=== PATIENT | male | born 1990 ===

== ENCOUNTER 2017-11-11 08:21 | Emergency (ER) | payer OTHER ==
[2017-11-11 08:37] VITALS: BP 138/85; PULSE 101; TEMP 99; O2SAT 95
[2017-11-11] MEDS ORDERED: Albuterol-Ipratrop 3 mg / 0.5 (3 ml) UD IH STA (09:23)
[2017-11-11] MEDS ORDERED: Albuterol-Ipratrop 3 mg / 0.5 (3 ml) UD ONE (09:26)
--- NOTE | 2017-11-11 09:26 | ED PDOC ---
HPI: CCC, URI, Sore Throat Time Seen by Provider: 11/11/17 09:09 Chief Complaint (Nursing): Shortness Of Breath History Per: Patient Onset/Duration Of Symptoms: Other (2 weeks) Current Symptoms Are (Timing): Still Present Associated Symptoms: Cough, Sputum Severity: Moderate Additional Complaint(s): Cough productive yellow sputum x 2 weeks. Reecntly returned from [facility]. Seen in [facility] yesterday and rx'ed with Zithromax and nebulizer. Improves with nebs but SOB and wheezing recurrs. Past Medical History Vital Signs: Last Vital Signs Temp 99.0 F 11/11/17 08:34 Pulse 101 H 11/11/17 08:34 Resp 18 11/11/17 09:30 BP 138/85 11/11/17 08:34 Pulse Ox 95 11/11/17 09:26 - Medical History PMH: No Chronic Diseases - Family History Family History: States: Unknown Family Hx - Home Medications Home Medications: Ambulatory Orders Medication Instructions Recorded Prednisone 50 mg PO DAILY #5 tab 11/11/17 - Allergies Allergies/Adverse Reactions: Allergies Allergy/AdvReac Type Severity Reaction Status Date / Time Penicillins Allergy RASH Verified 11/11/17 08:33 Review of Systems Constitutional: Positive for: Fever Respiratory: Positive for: Cough Physical Exam - Physical Exam Appears: Positive for: Non-toxic, No Acute Distress Skin: Positive for: Normal Color, Warm, DRY ENT: Positive for: Pharyngeal Erythema Neck: Positive for: Normal, Painless ROM Cardiovascular/Chest: Positive for: Regular Rate, Rhythm Respiratory: Positive for: Normal Breath Sounds, Rhonchi, Wheezing. Negative for: Respiratory Distress Extremity: Positive for: Normal ROM Neurologic/Psych: Positive for: Alert, Oriented - ECG O2 Sat by Pulse Oximetry: 95 - Progress Re-evaluation Time: 09:48 Condition: Improved Disposition - Clinical Impression Clinical Impression: Bronchitis - Patient ED Disposition Is Patient to be Admitted: No Counseled Patient/Family Regarding: Studies Performed, Diagnosis, Need For Followup, Rx Given - Disposition Referrals: [facility] [place] [Outside] Disposition: Routine/Home Disposition Time: 09:48 Condition: FAIR Prescriptions: Prednisone 50 mg PO DAILY #5 tab Instructions: Acute Bronchitis (ED) Forms: [employer] ([place])
[2017-11-11 09:36] VITALS: RESP 18
--- NOTE | 2017-11-11 10:06 | RAD ---
HISTORY: cough COMPARISON: None available. TECHNIQUE: Chest PA and lateral FINDINGS: Emanation limited by habitus. LUNGS: Minimal interstitial prominence and peribronchiolar cuffing centrally. No focal consolidation. Please note that chest x-ray has limited sensitivity for the detection of pulmonary masses. PLEURA: No significant pleural effusion identified. No definite pneumothorax . CARDIOVASCULAR: The cardiomediastinal silhouette appears within normal limits of size. OSSEOUS STRUCTURES: No acute osseous abnormality identified. VISUALIZED UPPER ABDOMEN: Mild elevation of right hemidiaphragm. OTHER FINDINGS: None. IMPRESSION: Findings consistent with mild reactive or inflammatory airway disease.
== END 2017-11-11 09:53 | disposition home or self-care (01) ==
LOC: H.ER 08:21
DX: J40 Bronchitis, not specified as acute or chronic (principal); Z88.0 Allergy status to penicillin